=== PATIENT | female | born 1960 | race African-American/Black ===

== ENCOUNTER 2019-08-15 15:42 | Inpatient (IN) | payer MEDICARE, MEDICAID ==
[~2019-08-15] VITALS: Ht 167.6 cm; Wt 124.3 kg
[~2019-08-15 15:42] MED LIST: HYDR-4001 PO; HYDR12.529 PO; INSU100I7 SQ; LEVO500T2 PO; LISI-604 PO; NICO-645 TD
[2019-08-15] MEDS ORDERED: SODIUM CHLORIDE 0.9% 1,000 ML IV ONE ×2 (16:25→18:46)
[2019-08-15] MEDS ORDERED: MORPHINE SULFATE 4 MG/ML CPJ (NOT FOR IM USE) IV STA (16:25)
[2019-08-15] MEDS ORDERED: ONDANSETRON HCL 4MG/2ML INJ IV STA (16:25)
[2019-08-15 16:58] LABS: HEMATOCRIT. 38.3 % (36.0-48.0); HEMOGLOBIN. 12.8 g/dL (12.0-16.0); MEAN CORPUSCULAR HEMOGLOBIN 28.6 pg (28.0-32.0); MEAN CORPUSCULAR VOLUME 85.2 fL (81.0-99.0); MEAN PLATELET VOLUME 7.8 fl (7.4-10.4); PLATELET 322 x1000/uL (130-400); RED BLOOD CELL COUNT 4.49 mill/uL (4.2-5.4); RED CELL DISTRIBUTION WIDTH 14.1 % (11.6-14.6)
[2019-08-15 17:04] LABS: CHLORIDE 102 mEq/L (98-107)
[2019-08-15 17:07] LABS: INR 1.1; PROTHROMBIN TIME 11.1 sec (9.6-11.0)
[2019-08-15] MEDS ORDERED: POTASSIUM CHLORIDE 20MEQ TABLET SR PO ONE (17:30)
[2019-08-15 18:34] LABS: PLATELET ESTIMATE NORMAL
[2019-08-15 18:41] LABS: CLARITY URINE TURBID (CLEAR); COLOR URINE RED (YELLOW); KETONES URINE 2+ (NEGATIVE); LEUKOCYTE ESTERASE URINE 3+ (NEGATIVE); NITRITE URINE POSITIVE (NEGATIVE); OCCULT BLOOD URINE 3+ (NEGATIVE); PROTEIN URINE 3+ (NEGATIVE)
[2019-08-15] MEDS ORDERED: CEFTRIAXONE 1 G PREMIX 50 ML IV ONE (19:00)
[2019-08-15] MEDS ORDERED: ACETAMINOPHEN 325MG TABLET PO PRN (21:30)
[2019-08-16] MEDS ORDERED: INSULIN LISPRO 100 UNITS/ML SUBCUT NR ×2 (01:00→06:15)
[2019-08-16] MEDS ORDERED: MORPHINE SULFATE 2 MG/ML CPJ (NOT FOR IM USE) IV PRN (10:00)
[2019-08-16] MEDS ORDERED: INSULIN REGULAR (HUMULIN R) 300UNITS/3ML SUBCUT SCH (10:00)
[2019-08-16] MEDS ORDERED: INSU100I28 SQ (10:52)
[2019-08-16] MEDS ORDERED: CYCL10TA7 PO (10:52)
[2019-08-16] MEDS ORDERED: METO2.5T14 PO (10:52)
[2019-08-16] MEDS ORDERED: GLIP10TA10 PO (10:52)
[2019-08-16] MEDS ORDERED: SIMV10TA97 PO (10:52)
[2019-08-16] MEDS ORDERED: NAPR500T7 PO (10:52)
[2019-08-16 11:00] VITALS: BP 131/68
[2019-08-16] MEDS ORDERED: DEXTROSE 50% WATER 50ML SYRINGE IV PRN ×2 (11:15→16:30)
[2019-08-16] MEDS ORDERED: CEFTRIAXONE 1 G PREMIX 50 ML IV SCH (11:15)
[2019-08-16 11:52] VITALS: BP 131/68
[2019-08-16] MEDS ORDERED: LISINOPRIL 20MG TABLET PO SCH (12:00)
[2019-08-16] MEDS ORDERED: HYDROCHLOROTHIAZIDE 12.5MG CAPSULE PO SCH (12:00)
[2019-08-16] MEDS ORDERED: CYCLOBENZAPRINE 10MG TABLET PO PRN (12:00)
[2019-08-16] MEDS ORDERED: INSULIN ASPART 10 UNIT SQ SCH (13:00)
[2019-08-16] MEDS: BLOOD SUGAR DIAGNOSTIC STRIP TEST SCH ×3 (13:07→21:14)
[2019-08-16] MEDS: INSULIN LISPRO 100 UNITS/ML SUBCUT SCH ×2 (13:28→18:29)
[2019-08-16] MEDS: CEFTRIAXONE 1 G PREMIX 50 ML IV SCH (15:43)
[2019-08-16 16:07] VITALS: BP 105/64
[2019-08-16] MEDS: NAPROXEN 250MG TABLET PO SCH (18:30)
[2019-08-16] MEDS: GLIPIZIDE 10MG TABLET PO SCH (18:30)
[2019-08-16] MEDS: SODIUM CHLORIDE 0.9% 1,000 ML IV SCH (18:40)
[2019-08-16 20:34] VITALS: BP 97/52
[2019-08-16] MEDS ORDERED: ATORVASTATIN CALCIUM 10MG TABLET PO SCH (21:00)
[2019-08-16] MEDS ORDERED: INSULIN GLARGINE UD 100 UNITS/ML SYR SUBCUT SCH (22:00)
[2019-08-16] MEDS ORDERED: INSULIN GLARGINE UD 100 UNITS/ML SYR SUBCUT NR (23:00)
[2019-08-17 00:47] VITALS: BP 98/62
[2019-08-17 04:18] VITALS: BP 97/60
[2019-08-17] MEDS: SODIUM CHLORIDE 0.9% 1,000 ML IV SCH (05:30)
[2019-08-17] MEDS: BLOOD SUGAR DIAGNOSTIC STRIP TEST SCH ×2 (05:39→12:01)
[2019-08-17] MEDS: GLIPIZIDE 10MG TABLET PO SCH (06:50)
[2019-08-17 07:45] LABS: CHLORIDE 108 mEq/L (98-107)
[2019-08-17 07:55] LABS: BASOPHILS % 0.3 % (0.0-2.0); EOSINOPHILS % 1.2 % (0.0-5.0); HEMOGLOBIN. 10.6 g/dL (12.0-16.0); LYMPHOCYTES % 12.1 % (20.0-50.0); MEAN CORPUSCULAR VOLUME 84.6 fL (81.0-99.0); MEAN PLATELET VOLUME 8.5 fl (7.4-10.4); MONOCYTES % 6.1 % (2.0-8.0); NEUTROPHILS % 80.3 % (40.0-76.0); PLATELET 228 x1000/uL (130-400); RED BLOOD CELL COUNT 3.67 mill/uL (4.2-5.4); RED CELL DISTRIBUTION WIDTH 14.1 % (11.6-14.6)
[2019-08-17 08:00] VITALS: BP 116/69
[2019-08-17] MEDS: INSULIN LISPRO 100 UNITS/ML SUBCUT SCH ×2 (08:20→12:05)
[2019-08-17] MEDS: CEFTRIAXONE 1 G PREMIX 50 ML IV SCH (08:20)
[2019-08-17] MEDS: NAPROXEN 250MG TABLET PO SCH (08:20)
[2019-08-17] MEDS ORDERED: LISINOPRIL 5MG TABLET PO SCH (09:00)
[2019-08-17] MEDS ORDERED: MEDICATION NOT ON FORMULARY EA (Simvastatin 10 MG) PO SCH (09:00)
[2019-08-17] MEDS ORDERED: METOLAZONE 2.5MG TABLET PO SCH (09:00)
[2019-08-17] MEDS ORDERED: HYDROCHLOROTHIAZIDE 25MG TABLET PO SCH (09:00)
[2019-08-17] MEDS ORDERED: POTASSIUM CHLORIDE 20MEQ TABLET SR PO NR (10:00)
[2019-08-17 12:00] VITALS: BP 107/60
[2019-08-17] MEDS ORDERED: LEVO500T2 MT (13:32)
[2019-08-17 15:01] VITALS: BP 107/60
[2019-08-17] MEDS ORDERED: INSULIN GLARGINE UD 100 UNITS/ML SYR SUBCUT SCH (22:00)
== END 2019-08-17 16:54 | disposition home or self-care (01) | DRG 871 ==
LOC: ER 15:42 → 6WST 19:08 → ENRESERV 08-16 07:41
PROVIDERS: ADMIT Internal Medicine; ATTEND Internal Medicine
DX: A41.9 Sepsis, unspecified organism (principal); N17.0 Acute kidney failure with tubular necrosis; N39.0 Urinary tract infection, site not specified; N17.9 Acute kidney failure, unspecified; E44.1 Mild protein-calorie malnutrition; Z68.41 Body mass index [BMI] 40.0-44.9, adult; N93.9 Abnormal uterine and vaginal bleeding, unspecified; I10 Essential (primary) hypertension; F17.200 Nicotine dependence, unspecified, uncomplicated; E87.6 Hypokalemia; E11.9 Type 2 diabetes mellitus without complications; E80.6 Other disorders of bilirubin metabolism; Z88.0 Allergy status to penicillin; Z79.899 Other long term (current) drug therapy; Z90.49 Acquired absence of other specified parts of digestive tract
CPT/HCPCS: 36415; 71045; 74176; 76700; 76830; 76856; 80048; 80053; 81003; 82962; 85025; 87077; 87186; 93005; 96365; 96372; 96375; 99285; J0696; J1815; J2270; J2405; J7030; J7040